=== PATIENT | female | born 1955 | race Caucasian/White ===

== ENCOUNTER 2017-04-03 04:06 | Observation (INO) | payer BC ==
[2017-04-03 04:22] VITALS: BMI 34.9
--- NOTE | 2017-04-03 04:30 | DR.GENAD ---
HPI - PCP Primary Care Physician: trupti - HPI Comment HPI Comment: PATIENT FELL FEW DAYS AGO AND CAUSE ABRSION TO LT WRIST AND LT FACE. THESE AREAS ARE NOW RED AND EXTENDING. THE LEFT WRIST HAVE DRAINING PUSTULAR LESION WITH RED STREAKING EXTENDING TO LT ELBOW. SHE HAD FEVER AT HOME . RT KNEE IS ALSO BRUISE AND RED. ALSO HURTING. - Complaint/Symptoms Chief Complaint Doctors Comments: FEVER AT HOME. REDNESS PAIN LT FACE AND LT WRIST WITH STREKING. Chief Complaint:: FEVER , - Nurses notes reviewed Nurses Notes Review: Yes - Source History Provided: Patient - Mode of Arrival Mode of Arrival: Ambulatory - Timing Onset of Chief Complaint: 03/29/17 Came on: Suddenly - Duration Duration: Constant Duration: Days - Severity Severity: Moderate PMH - PMH Past Medical History: Yes Past Medical History: Diabetes, Dyslipidemia, Migraines, Hypertension Past Medical History Comment: NEUROPATHY Past Surgical History: Yes Surgical History: Appendectomy, Cholecystectomy, Ortho Surgery - Family History History of Family Medical Conditions: Yes Family Medical History: Diabetes Mellitus, Cancer, [place] - Social History Does any household member use tobacco: No Alcohol Use: None Do you use any recreational Drugs:: No Lives With: Family Lives Where: Home - infectious screening In the last 2 months have you had wt loss of >10#?: NO Have you had fever, night sweats or hemotysis?: No Have you traveled outside the country in the last 6 months?: No Isolation: Standard ROS - Review of Systems Constitutional: No Symptoms Reported Eyes: No Symptoms Reported ENTM: No Symptoms Reported Respiratoy: No Symptoms Reported Cardiovascular: No Symptoms Reported Gastrointestinal/Abdominal: No Symptoms Reported Genitourinary: No Symptoms Reported Neurological: No Symptoms Reported Musculoskeletal: Left (LT WRIST REDNESS WITH PUSTULAR DRAINAGE AND RED STREAKING TO LT ELBOW.), Wrist, Knee (RT KNEE ABRASION AND REDNESS.), Other (RT FACE REDNESS AND ABRASION) Integumentary: Change in Color, Lesions Hematologic/Lymphatic: No Symptoms Reported Endocrine: No Symptoms Reported All Other Systems: Reviewed and Negative PE - Vital Signs Vitals: Temperature 98.2 F Pulse Rate [Left Brachial] 95 Pulse Rate 115 Respiratory Rate 16 Blood Pressure [Left Arm] 147/71 Blood Pressure 177/117 O2 Sat by Pulse Oximetry 97 - General Limitations: No Limitations General Appearance: Alert - Head Head Exam: Normal Inspection - Eyes Eye exam: Normal Appearance - ENT ENT Exam: Normal External Ear Exam External Ear Exam: Normal External Inspection TM/Canal Exam: Bilateral Normal Nose Exam: Normal Nose Exam Mouth Exam: Normal Inspection Throat Exam: Normal Inspection - Neck Neck Exam: Normal Inspection - Chest Chest Inspection: Symmetric Chest Wall Rise - Respiratory Respiratory Exam: Normal Lung Sounds Bilat Respiratory Exam: Bilateral Clear to Auscultation - Cardiovascular Cardiovascular Exam: Tachycardia - Abdominal Exam Abdominal Exam: Normal Inspection - Extremities Extremities Exam: Tenderness (LT WRIST PUSTULAR LESION WITH REDNESS AND STREAKING UP TO THE ELBOW.), Other (RT KNEE SWELLING AND TENDERNESS.) - Back Back Exam: Normal Inspection - Neurologic Neurological Exam: Alert - Psychiatric Psychiatric Exam: Normal Affect, Normal Mood - Skin Skin Exam: Erythema (LT FACIAL ABRSION AND REDNESS.) MDM - Additional Information Additional Information Obtained From: Family - Differential Diagnosis Differential Diagnosis: CELLULITIS LT WRIST AND LT FACE, HYPERGLYCEMIA, RT KNEE PAIN/ABRSION Course - Treatment Treatment: SEE ORDERS. IV MEDS AND FLUID IN ED. - Consultation Consultation Comments: DISCUSS PATIENT WITH DR. ALTAMIRANO. HE WILL ADMIT PATIENT. - Education/Counseling Education/Counseling: Patient, Family, Education Educated On: Treatment, Diagnosis ROR - Labs Reviewed Laboratory Results Reviewed?: Yes Result Diagrams: 04/03/17 05:00 04/03/17 05:00 Laboratory: WBC 19.0 X10^3/uL (3.6-10.0) H 04/03/17 05:00 RBC 4.67 X10^6/uL (3.5-5.4) 04/03/17 05:00 Hgb 14.6 g/dL (12.0-16.0) 04/03/17 05:00 Hct 42.4 % (36.0-47.0) 04/03/17 05:00 MCV 90.7 fL (80.0-100.0) 04/03/17 05:00 MCH 31.3 pg (27.0-34.0) 04/03/17 05:00 MCHC 34.5 g/dL (33.0-35.0) 04/03/17 05:00 RDW 12.8 % (11.6-16.5) 04/03/17 05:00 Plt Count 325 X10^3/uL (150.0-450.0) 04/03/17 05:00 MPV 7.7 fL (7.4-11.0) 04/03/17 05:00 Neut % 89.3 % (42.0-75.0) H 04/03/17 05:00 Lymph % 5.2 % (21.0-51.0) L 04/03/17 05:00 [place] % 4.6 % (0.0-13.0) 04/03/17 05:00 Eos % 0.5 % (0.9-2.9) L 04/03/17 05:00 Baso % 0.4 % (0.2-1.0) 04/03/17 05:00 Neut # 17.0 x10^3/uL (2.2-4.8) H 04/03/17 05:00 Lymph # 1.0 X10^3/uL (1.3-2.9) L 04/03/17 05:00 [place] # 0.9 x10^3/uL (0.3-0.8) H 04/03/17 05:00 Eos # 0.1 x10^3/uL (0.0-0.2) 04/03/17 05:00 Baso # 0.1 X10^3/uL (0.0-0.1) 04/03/17 05:00 Absolute Nucleated RBC 0.0 /100WBC 04/03/17 05:00 INR Target Range - 04/03/17 05:00 INR 1.00 (0.8-1.3) 04/03/17 05:00 PTT 30.9 SECONDS (22.9-36.5) 04/03/17 05:00 PTT Comment - 04/03/17 05:00 Sodium 132 mmol/L (136-145) L 04/03/17 05:00 Corrected Sodium 139 mmol/L (136-145) 04/03/17 05:00 Potassium 4.0 mmol/L (3.5-5.1) 04/03/17 05:00 Chloride 97 mmol/L (98-107) L 04/03/17 05:00 Carbon Dioxide 21.6 mmol/L (21-32) 04/03/17 05:00 BUN 18 mg/dL (7-18) 04/03/17 05:00 Creatinine 1.32 mg/dL (0.55-1.02) H 04/03/17 05:00 Est GFR (MDRD) Af Amer 53 (>60) L 04/03/17 05:00 Est GFR (MDRD) Non-Af 43 (>60) L 04/03/17 05:00 Glucose 371 mg/dL (65-99) H 04/03/17 05:00 Lactic Acid 1.5 mmol/L (0.4-2.0) 04/03/17 05:00 Calcium 8.9 mg/dL (8.5-10.1) 04/03/17 05:00 Corrected Calcium TNP 04/03/17 05:00 Total Bilirubin 0.70 mg/dL (0.2-1.0) 04/03/17 05:00 AST 15 Units/L (15-37) 04/03/17 05:00 ALT 23 Units/L (12-78) 04/03/17 05:00 Alkaline Phosphatase 108 Units/L (46-116) 04/03/17 05:00 C-Reactive Protein 32.20 mg/L (0-3.0) H 04/03/17 05:00 Total Protein 7.3 g/dL (6.4-8.2) 04/03/17 05:00 Albumin 3.4 g/dL (3.4-5.0) 04/03/17 05:00 Globulin 3.9 g/dL (2.5-4.5) 04/03/17 05:00 Albumin/Globulin Ratio 0.9 Ratio (1.1-2.1) L 04/03/17 05:00 Acetone, Semi-Quant Small (NEGATIVE) H 04/03/17 05:00 - XRAY XRAY Findings: REPORT DISCUSS WITH PATIENT AND HER SISTER. - Diagnosis Discharge Problem: Cellulitis, face, Cellulitis of wrist, Hyperglycemia Abrasion of right knee Qualifiers: Encounter type: initial encounter Qualified Code(s): S80.211A - Abrasion, right knee, initial encounter - Discharge Plan Disposition: ADMITTED INPATIENT Condition: Stable - Follow ups/Referrals - Instructions
[2017-04-03] MEDS ORDERED: TORADOL 30 MG VIAL IVP ONE (04:43)
[2017-04-03] MEDS ORDERED: ZOSYN VIAL 3.375 GM 3.375 GM in NS 100 ML IV + SPIKE MINIBAG* 100 ML IV ONE (04:43)
[2017-04-03] MEDS ORDERED: TORADOL 30 MG VIAL ONE (05:03)
[2017-04-03] MEDS ORDERED: ZOSYN VIAL 3.375 GM IV ONE (05:04)
[2017-04-03] MEDS ORDERED: NS 100 ML IV 100 ML IV ONE ×2 (05:04→20:23)
[2017-04-03 05:17] LABS: BASOPHILS # (AUTO) 0.1 X10^3/uL (0.0-0.1); BASOPHILS % (AUTO) 0.4 % (0.2-1.0); EOSINOPHILS # (AUTO) 0.1 x10^3/uL (0.0-0.2); EOSINOPHILS % (AUTO) 0.5 % (0.9-2.9); HEMATOCRIT 42.4 % (36.0-47.0); HEMOGLOBIN 14.6 g/dL (12.0-16.0); LYMPHOCYTES % (AUTO) 5.2 % (21.0-51.0); MEAN CORPUSCULAR HEMOGLOBIN 31.3 pg (27.0-34.0); MEAN CORPUSCULAR HGB CONC 34.5 g/dL (33.0-35.0); MEAN CORPUSCULAR VOLUME 90.7 fL (80.0-100.0); MEAN PLATELET VOLUME 7.7 fL (7.4-11.0); MONOCYTES # (AUTO) 0.9 x10^3/uL (0.3-0.8); MONOCYTES % (AUTO) 4.6 % (0.0-13.0); NEUTROPHILS % (AUTO) 89.3 % (42.0-75.0); PLATELET COUNT 325 X10^3/uL (150.0-450.0); RED BLOOD COUNT 4.67 X10^6/uL (3.5-5.4); RED CELL DISTRIBUTION WIDTH 12.8 % (11.6-16.5)
[2017-04-03 05:26] LABS: ALANINE AMINOTRANSFERASE 23 Units/L (12-78); ALBUMIN 3.4 g/dL (3.4-5.0); ALKALINE PHOSPHATASE 108 Units/L (46-116); ASPARTATE AMINO TRANSFERASE 15 Units/L (15-37); BLOOD UREA NITROGEN 18 mg/dL (7-18); CALCIUM 8.9 mg/dL (8.5-10.1); CARBON DIOXIDE 21.6 mmol/L (21-32); CHLORIDE 97 mmol/L (98-107); COR NA(FOR HYPERGLY) 139 mmol/L (136-145); CREATININE 1.32 mg/dL (0.55-1.02); SODIUM 132 mmol/L (136-145); TOTAL PROTEIN 7.3 g/dL (6.4-8.2); eGFR BLACK RACES 53 (>60); eGFR NON BLACK RACES 43 (>60)
[2017-04-03 05:45] LABS: LACTIC ACID 1.5 mmol/L (0.4-2.0)
[2017-04-03] MEDS ORDERED: NS 1000 ML 1,000 ML IV ONE (06:00)
[2017-04-03] MEDS ORDERED: NS 1000 ML 1,000 ML ONE ×2 (06:01→07:29)
--- NOTE | 2017-04-03 06:49 | RAD ---
Examination: Left wrist, three views History: Fell with pain Findings: No definite fracture, carpal displacement, bone destruction or pathologic calcification. Impression: No acute abnormality identified. Reported By:
[2017-04-03] MEDS ORDERED: PHENERGAN TAB 25 MG PO PRN (06:58)
[2017-04-03] MEDS ORDERED: MOTRIN TAB 600 MG PO PRN (06:58)
[2017-04-03] MEDS ORDERED: PHARMACY CONSULT - VANCOMYCIN XX SCH (07:00)
[2017-04-03] MEDS ORDERED: DEMEROL INJ IVP ONE (07:04)
[2017-04-03] MEDS ORDERED: ZOFRAN INJ 4 MG VIAL IVP PRN (07:04)
[2017-04-03] MEDS ORDERED: ULTRAM PO PRN (07:06)
[2017-04-03] MEDS ORDERED: CHOLECALCIFEROL 50000 UNIT PO SCH (07:15)
[2017-04-03] MEDS ORDERED: DULAGLUTIDE 0.75 MG SC SCH (07:15)
[2017-04-03 07:32] LABS: ABG ALLEN TEST POS; ABG BASE EXCESS -1.6 mmol/L (-2.0-2.0); ABG HCO3 22.9 mmol/L (22-26)
[2017-04-03] MEDS: NS 1000 ML 1,000 ML IV SCH ×2 (07:39→14:55)
[2017-04-03] MEDS ORDERED: HumuLIN R ONE (07:41)
[2017-04-03] MEDS: HumuLIN R SC PRN ×2 (07:44→11:35)
[2017-04-03] MEDS ORDERED: PATIENT'S HOME MEDICATION (Ascorbic Acid [Vitamin C] 1,000 MG) PO SCH (09:00)
[2017-04-03] MEDS ORDERED: SYNTHROID 75 mcg TAB PO SCH (09:00)
[2017-04-03] MEDS ORDERED: OLMESARTAN MEDOXOMIL 20 MG PO SCH (09:00)
[2017-04-03] MEDS: VANCOMYCIN HCL 1 GM VIAL 1 GM in NS 250 ML IV 250 ML IV SCH ×2 (09:34→20:55)
[2017-04-03] MEDS: ZOSYN VIAL 3.375 GM IV SCH ×3 (09:35→21:00)
[2017-04-03] MEDS: BENICAR TAB 40 MG PO SCH (09:35)
[2017-04-03] MEDS: HYDROCHLOROTHIAZIDE 25 MG TAB PO SCH (09:35)
[2017-04-03] MEDS: GLUCOVANCE 5/500MG PO SCH ×2 (09:36→20:46)
[2017-04-03] MEDS: NEURONTIN CAP 300 MG PO SCH ×2 (09:36→20:45)
[2017-04-03] MEDS: VITAMIN C PO SCH ×2 (09:36→20:50)
[2017-04-03] MEDS: LANTUS SC SCH (09:41)
[2017-04-03] MEDS: SYNTHROID 50 mcg TAB PO SCH (10:01)
[2017-04-03] MEDS: MILNACIPRAN HCL 25 MG PO SCH ×2 (11:25→22:41)
[2017-04-03] MEDS: ESTRADIOL PO SCH (11:25)
[2017-04-03] MEDS: NORETHINDRONE ACET PO SCH (11:25)
[2017-04-03] MEDS ORDERED: NS 100 ML IV + SPIKE MINIBAG* 100 ML IV ONE (14:50)
[2017-04-03] MEDS: TORADOL 15 MG VIAL IVP PRN ×2 (14:55→20:59)
[2017-04-03] MEDS ORDERED: NS 500 ML IV 500 ML IV ONE (20:21)
[2017-04-04] MEDS: NS 1000 ML 1,000 ML IV SCH ×5 (01:50→21:46)
[2017-04-04] MEDS ORDERED: NS 100 ML IV 100 ML IV ONE ×2 (05:16→13:25)
[2017-04-04] MEDS: ZOSYN VIAL 3.375 GM IV SCH ×3 (05:45→22:30)
[2017-04-04] MEDS: SYNTHROID 50 mcg TAB PO SCH (06:01)
[2017-04-04 06:10] LABS: ALBUMIN 2.7 g/dL (3.4-5.0); CALCIUM 7.8 mg/dL (8.5-10.1); CARBON DIOXIDE 22.2 mmol/L (21-32); COR CA(FOR HYPOALB) 8.8 mg/dL (8.5-10.1); CREATININE 1.5 mg/dL (0.55-1.02)
[2017-04-04 06:13] LABS: BASOPHILS % (AUTO) 0.3 % (0.2-1.0); EOSINOPHILS # (AUTO) 0.3 x10^3/uL (0.0-0.2); EOSINOPHILS % (AUTO) 2.5 % (0.9-2.9); HEMATOCRIT 36.6 % (36.0-47.0); HEMOGLOBIN 12.9 g/dL (12.0-16.0); LYMPHOCYTES # (AUTO) 1.1 X10^3/uL (1.3-2.9); LYMPHOCYTES % (AUTO) 9.3 % (21.0-51.0); MEAN CORPUSCULAR HEMOGLOBIN 31.8 pg (27.0-34.0); MEAN CORPUSCULAR HGB CONC 35.1 g/dL (33.0-35.0); MEAN CORPUSCULAR VOLUME 90.4 fL (80.0-100.0); MEAN PLATELET VOLUME 8.2 fL (7.4-11.0); MONOCYTES # (AUTO) 0.7 x10^3/uL (0.3-0.8); MONOCYTES % (AUTO) 5.5 % (0.0-13.0); NEUTROPHILS # (AUTO) 10.2 x10^3/uL (2.2-4.8); NEUTROPHILS % (AUTO) 82.4 % (42.0-75.0); PLATELET COUNT 204 X10^3/uL (150.0-450.0); RED BLOOD COUNT 4.04 X10^6/uL (3.5-5.4); RED CELL DISTRIBUTION WIDTH 12.8 % (11.6-16.5); WHITE BLOOD COUNT 12.3 X10^3/uL (3.6-10.0)
[2017-04-04] MEDS: MILNACIPRAN HCL 25 MG PO SCH ×3 (08:39→21:59)
[2017-04-04] MEDS: NEBIVOLOL HCL 40 MG PO SCH (08:40)
[2017-04-04] MEDS: ESTRADIOL PO SCH (08:41)
[2017-04-04] MEDS: NORETHINDRONE ACET PO SCH (08:41)
[2017-04-04] MEDS: BENICAR TAB 40 MG PO SCH (08:42)
[2017-04-04] MEDS: NEURONTIN CAP 300 MG PO SCH ×2 (08:42→20:47)
[2017-04-04] MEDS: GLUCOVANCE 5/500MG PO SCH ×2 (08:42→20:47)
[2017-04-04] MEDS: HYDROCHLOROTHIAZIDE 25 MG TAB PO SCH (08:43)
[2017-04-04] MEDS: VITAMIN C PO SCH ×2 (08:43→20:47)
[2017-04-04] MEDS: VANCOMYCIN HCL 1 GM VIAL 1 GM in NS 250 ML IV 250 ML IV SCH ×2 (08:44→20:46)
[2017-04-04] MEDS: LANTUS SC SCH (08:44)
[2017-04-04] MEDS ORDERED: AMBIEN PO PRN (09:21)
[2017-04-04] MEDS: COLACE CAP 100 MG PO SCH ×2 (10:02→20:48)
[2017-04-04] MEDS: TOPAMAX PO SCH ×2 (10:02→20:47)
[2017-04-04] MEDS: MILK OF MAGNESIA PO SCH ×2 (10:03→10:06)
[2017-04-04] MEDS: SNACK - Diabetic Appropriate PO SCH ×2 (10:06→20:45)
[2017-04-04] MEDS: TORADOL 15 MG VIAL IVP PRN ×2 (11:51→20:42)
[2017-04-04] MEDS: HumuLIN R SC PRN ×2 (12:01→21:58)
--- NOTE | 2017-04-04 13:54 | DR.H&P ---
H&P - History & Physical for Day of: H&P Date: 04/03/17 - Chief Complaint Chief Complaint: fall, facial and wrist abrasions and redness, fever - Allergies Allergies/Adverse Reactions: Allergies Allergy/AdvReac Type Severity Reaction Status Date / Time codeine Allergy Verified 04/03/17 04:11 hydrocodone Allergy Verified 04/03/17 04:11 oxycodone Allergy Verified 04/03/17 04:11 - History of Present Illness History of Present Illness: is a 61 year old patient of Dr.Jill Justino mendez who presented to the emergency room with reports of redness, abrasions, and pain to the face and left wrist following a recent fall. Patient reports she fell off of the porch and landed on brick. She is noted with redness and abrasions to the left side of face and nose as well as an abrasion to the left wrist. Patient reports that left wrist has been noted with purulent drainage. Patient noted with red streaking extending from wrist to left elbow. She reports fever at home. Medical History includes the following: Hypertension, DM type II, Dyslipidemia, Migraines, NeuropathyOn arrival to the emergency room, vital signs were: 98.2, 115, 17, 96% RA, 177/117. Labs and wrist xray were obtained. Abnormal lab values include the following: WBC 19.0, Neut% 89.3, Lymph % 5.2, Eos% 0.5, Neut# 17.0, Lymph# 1.0, [place]# 0.9, Sodium 132, Chloride 97, Creatinine 1.32, GFR af 53, GFR non 43, Glucose 371, CRP 32.20, A/G Ratio 0.9, Serum Acetone Small. ABG: pO2 71.0. Wound Culture (Left wrist) Pending. Blood Cultures x2 Pending. Left Wrist X-Ray: No acute abnormality identified. We admitted patient to the hospital as observation for further evaluation and treatment of cellulitis to the left side face and left upper extremity. Patient was started on IV antibiotics of Zosyn and Vancomycin. We will obtain a facial bones CT and follow up with labs in the morning. - Past Medical History Past Medical History: Diabetes, Dyslipidemia, Migraines, Hypertension - Past Surgical History Surgical History: Appendectomy, Cholecystectomy, Ortho Surgery - Family History Family Medical History: Diabetes Mellitus, Cancer, [place] - Social History Does patient currently use any type of tobacco product: No Have you used tobacco products in the last 12 months: No Type of Tobacco Use: None Does any household member use tobacco: No Alcohol Use: None Drug Use: None - Medications Home Medications: Ascorbic Acid [Vitamin C] 1,000 mg PO BID 04/03/17 [History Confirmed 04/03/17] Cholecalciferol (Vitamin D3) [Vitamin D3] 50,000 unit PO MONTHLY 04/03/17 [ History Confirmed 04/03/17] Dulaglutide [Trulicity] 0.75 mg SC WEEKLY 04/03/17 [History Confirmed 04/03/17] Gabapentin 600 mg PO BID 04/03/17 [History Confirmed 04/03/17] Hydrochlorothiazide [Hydrochlorothiazide 25 mg Tab] 25 mg PO QAM 04/03/17 [ History Confirmed 04/03/17] Olmesartan Medoxomil [Benicar] 20 mg PO DAILY 04/03/17 [History Confirmed ] Zolpidem Tartrate [Ambien] 10 mg PO HS PRN 04/03/17 [History Confirmed 04/03/17] - Review of Systems Constitutional: Fever Eyes: No Symptoms Reported. denies: See HPI, Pain, Vision Change, Conjunctivae Inflammation, Eyelid Inflammation, Redness, Other ENT: No Symptoms Reported. denies: See HPI, Ear Pain, Ear Discharge, Nose Pain , Nose Discharge, Nose Congestion, Mouth Pain, Mouth Swelling, Throat Pain, Throat Swelling, Other Respiratory: No Symptoms Reported. denies: See HPI, Cough, Dry, Shortness of Breath, Hemoptysis, SOB with Excertion, Pleuritic Pain, Sputum, Wheezing, Other Cardiovascular: No Symptoms Reported. denies: Chest Pain, See HPI, Palpitations , Orthopnea, Paroxysmal Noc. Dyspnea, Edema, Light Headedness, Other Gastrointestinal: No Symptoms Reported. denies: See HPI, Nausea, Vomiting, Abdominal Pain, Diarrhea, Constipation, Melena, Hematochezia, Other Genitourinary: No Symptoms Reported. denies: See HPI, Dysuria, Frequency, Incontinence, Hematuria, Retention, Other Musculoskeletal: Hand Pain (left wrist pain and redness, purulent drainage, red streaking from wrist to elbow), Other (left knee abrasion and redness, left side facial redness and abrasions ) Skin: Wound (left wrist, left knee, and left side face redness and abrasions ) - Physical Exam Vital Signs: Temperature 98.1 F Pulse Rate [Left Brachial] 82 Pulse Rate 115 Respiratory Rate 20 Blood Pressure [Right Arm] 133/63 Blood Pressure [Left Arm] 127/60 Blood Pressure 177/117 O2 Sat by Pulse Oximetry 97 Oriented: Normal Eyes: Normal Ear: Normal Nose: Normal Throat: Normal Respiratory: Clear Throughout Cardiovascular: Edema (bilateral lower extremities ) : Normal Auscultation: Bowel Sounds: Normal Palpation: Normal Tenderness: Normal Skin: Wound (left wrist abrasion, redness, and purulent drainage, left side facial redness and abrasions, left knee redness and abrasions ) Musculoskeletal: Left, Wrist (left wrist pain, abrasions, redness ), Knee (left knee pain ) Psychiatric: Normal Mood Description: Calm Affect: Normal - Assessment/Plan (1) Cellulitis of wrist Status: Acute Plan: vancomycin iv, zosyn iv, wound care, continue to monitor (2) Cellulitis, face Status: Acute Plan: obtain facial bones ct, vancomycin iv, zosyn iv, wound care, continue to monitor (3) Abrasion of right knee Qualifiers: Encounter type: initial encounter Qualified Code(s): S80.211A - Abrasion, right knee, initial encounter Status: Acute Plan: vancomycin iv, zosyn iv, wound care, continue to monitor (4) Hyperglycemia Status: Acute Plan: check otbs, humulin r sliding scale, continue home medications, continue to monitor
--- NOTE | 2017-04-04 17:41 | CT ---
CT FACE WITHOUT IV CONTRAST CLINICAL INDICATION: Fall with abrasions to left face TECHNIQUE: Multiple-row detector helical CT examination of the facial bones and mandible without IV c ontrast. Axial, sagittal, and coronal reconstructed images. Dose reduction techniques including Auto mated Exposure Control (AEC) and adjustment of mA and kV were utlized. COMPARISON: None. FINDINGS: The facial bones including the mandible are within normal limits. Specifically, there is no evidence of fracture or dislocation, and no evidence of aggressive osseous lesions. The globes are normal in size, contour, and position. The course and caliber of the optic nerve sheat h complex is within normal limits. The extraocular muscles, intraconal fat, and extraconal fat are w ithin normal limits. The lacrimal glands appear normal. The orbital flores and optic canals are idalia l. The visualized intracranial structures appear normal. No lesion of the visualized skull base or jose luis rium is present. The visualized paranasal sinuses and tympanomastoid cavities are unopacified. IMPRESSION: 1. Grossly unremarkable CT of the face without IV contrast. Reported By:
[2017-04-04] MEDS ORDERED: NS 250 ML IV 250 ML IV ONE (19:48)
[2017-04-05] MEDS: NS 1000 ML 1,000 ML IV SCH ×2 (01:09→07:12)
[2017-04-05] MEDS: TORADOL 15 MG VIAL IVP PRN (02:56)
[2017-04-05] MEDS ORDERED: NS 100 ML IV + SPIKE MINIBAG* 100 ML IV ONE (05:38)
[2017-04-05 05:47] LABS: BASOPHILS % (AUTO) 0.4 % (0.2-1.0); EOSINOPHILS # (AUTO) 0.5 x10^3/uL (0.0-0.2); EOSINOPHILS % (AUTO) 4.8 % (0.9-2.9); HEMATOCRIT 33.7 % (36.0-47.0); HEMOGLOBIN 11.9 g/dL (12.0-16.0); LYMPHOCYTES # (AUTO) 1.9 X10^3/uL (1.3-2.9); LYMPHOCYTES % (AUTO) 19.5 % (21.0-51.0); MEAN CORPUSCULAR HGB CONC 35.2 g/dL (33.0-35.0); MEAN CORPUSCULAR VOLUME 90.9 fL (80.0-100.0); MEAN PLATELET VOLUME 8.2 fL (7.4-11.0); MONOCYTES # (AUTO) 0.6 x10^3/uL (0.3-0.8); NEUTROPHILS # (AUTO) 6.7 x10^3/uL (2.2-4.8); NEUTROPHILS % (AUTO) 69.3 % (42.0-75.0); PLATELET COUNT 217 X10^3/uL (150.0-450.0); RED BLOOD COUNT 3.71 X10^6/uL (3.5-5.4); RED CELL DISTRIBUTION WIDTH 13.1 % (11.6-16.5); WHITE BLOOD COUNT 9.6 X10^3/uL (3.6-10.0)
[2017-04-05] MEDS: ZOSYN VIAL 3.375 GM IV SCH (06:05)
[2017-04-05] MEDS: SYNTHROID 50 mcg TAB PO SCH (06:06)
[2017-04-05 06:27] LABS: ALANINE AMINOTRANSFERASE 32 Units/L (12-78); ALBUMIN 2.6 g/dL (3.4-5.0); ALKALINE PHOSPHATASE 94 Units/L (46-116); ASPARTATE AMINO TRANSFERASE 23 Units/L (15-37); BLOOD UREA NITROGEN 14 mg/dL (7-18); CALCIUM 7.6 mg/dL (8.5-10.1); CARBON DIOXIDE 24.1 mmol/L (21-32); CHLORIDE 109 mmol/L (98-107); COR CA(FOR HYPOALB) 8.7 mg/dL (8.5-10.1); CREATININE 1.22 mg/dL (0.55-1.02); SODIUM 142 mmol/L (136-145); TOTAL PROTEIN 5.9 g/dL (6.4-8.2); eGFR BLACK RACES 58 (>60); eGFR NON BLACK RACES 48 (>60)
[2017-04-05] MEDS ORDERED: FIORICET TAB PO ONE ×2 (09:11→10:00)
[2017-04-05 09:14] LABS: CREATININE 1.22 mg/dL (0.55-1.02); VANCOMYCIN,TROUGH 18.2 ug/mL (15-20)
[2017-04-05] MEDS: LANTUS SC SCH (09:21)
[2017-04-05] MEDS: BENICAR TAB 40 MG PO SCH (09:22)
[2017-04-05] MEDS: VITAMIN C PO SCH (09:23)
[2017-04-05] MEDS: GLUCOVANCE 5/500MG PO SCH (09:23)
[2017-04-05] MEDS: HYDROCHLOROTHIAZIDE 25 MG TAB PO SCH (09:24)
[2017-04-05] MEDS: NEURONTIN CAP 300 MG PO SCH (09:24)
[2017-04-05] MEDS: NEBIVOLOL HCL 40 MG PO SCH (09:29)
[2017-04-05] MEDS: MILNACIPRAN HCL 25 MG PO SCH (09:29)
[2017-04-05] MEDS: ESTRADIOL PO SCH (09:29)
[2017-04-05] MEDS: NORETHINDRONE ACET PO SCH (09:29)
[2017-04-05] MEDS: TOPAMAX PO SCH (09:29)
[2017-04-05] MEDS: MILK OF MAGNESIA PO SCH (10:02)
[2017-04-05] MEDS: VANCOMYCIN HCL 1 GM VIAL 1 GM in NS 250 ML IV 250 ML IV SCH (10:03)
[2017-04-05 10:46] VITALS: BP 152/81
== END 2017-04-05 11:45 | disposition home or self-care (01) | DRG 603 ==
LOC: ER 04:06 → MED/SURG 06:55
PROVIDERS: ADMIT Internal Medicine; ATTEND Internal Medicine
DX: L03.211 Cellulitis of face (principal); L03.114 Cellulitis of left upper limb; S80.211A Abrasion, right knee, initial encounter; E11.65 Type 2 diabetes mellitus with hyperglycemia; Z91.81 History of falling; E78.2 Mixed hyperlipidemia; I10 Essential (primary) hypertension; B95.61 Methicillin susceptible Staphylococcus aureus infection as the cause of diseases classified elsewhere; R79.82 Elevated C-reactive protein (CRP); W17.89XA Other fall from one level to another, initial encounter; Y92.098 Other place in other non-institutional residence as the place of occurrence of the external cause
CPT/HCPCS: 36415; 36600; 70486; 73100; 80053; 80202; 82009; 82565; 82803; 83605; 85025; 85610; 85730; 86140; 87040; 87070; 87075; 87077; 87186; 87205; 96365; 96367; 96372; 96374; 96375; 99283; 99284; A4222; G0378; J1815; J1885; J2543; J3370

== ENCOUNTER 2022-11-10 18:49 | Inpatient (IN) ==
--- NOTE | 2022-11-10 20:29 | DR.URIAD ---
HPI Time Seen Time Seen by Provider: 11/10/22 20:29 PCP Primary Care Physician: ES SHAH Complaint Chief Complaint Doctors Comments: 66 y/o female, ill x 3 days. + developed fever, weakness. No cough, congestion, sore throat. Having some diarrhea past 4 days, occ nausea. No vomiting, muscle pain, rash. No headache. Saw PCP yesterday, had negative swabs. Put on Tamiflu anyway. Temp spiked to 105 today. Chief Complaint:: PATIENT BROUGHT IN ER VIA WHEELCHAIR. PT COMPLAINS OF ELEVATED TEMP, BODY ACHES, WEAKNESS, DECREASED APPETITE SINCE SATURDAY. PT STATES SHE SEEN HER PCP YESTERDAY WITH NEGATIVE COVID FLU AND STREP RESULTS. PCP SENT HER HOME WITH TAMIFLU DUE TO FLU LIKE SYMPTOMS. PT STATES HER TEMP WAS 105 TODAY. TEMP NOTED TO BE 97.8 IN TRIAGE. BP 71/45. PT HAS NO COMPLAINTS OF DIZZINESS, LIGHTHEADED, N/V AT THIS TIME. Self Treatment fo Chief Complaint: TAMIFLU COVID-19 Coronavirus risk:travel/contact w/high risk person: Yes Has patient experienced Coronavirus symptoms: Yes Coronavirus symptoms experienced: Fever Source History Provided: Patient and Family Member Mode of Arrival Mode of Arrival: Ambulatory Timing Onset of Chief Complaint: 11/07/22 PMH PMH Past Medical History: Yes Past Medical History: Seizures Past Medical History Comment: EPILEPSY Past Surgical History: Yes Surgical History: Appendectomy, Cholecystectomy, Weight Loss Surgery and Other Past Surgical History Comment: EYE SURGERY Family History History of Family Medical Conditions: Yes Family Medical History: Diabetes Mellitus, Cancer and [place] Social History Does patient currently use any type of tobacco product: No Have you used tobacco products in the last 12 months: No Type of Tobacco Use: None Does any household member use tobacco: No Alcohol Use: None Do you use any recreational Drugs:: No Lives With: Family Lives Where: Home Travel Risk Coronavirus risk:travel/contact w/high risk person: Yes Has patient experienced Coronavirus symptoms: Yes Coronavirus symptoms experienced: Fever Infectious screening Have you traveled outside the country in the last 6 months?: No Isolation: Standard ROS Review of Systems Constitutional: Fever and Weakness Eyes: No Symptoms Reported ENTM: No Symptoms Reported Respiratoy: No Symptoms Reported Cardiovascular: No Symptoms Reported Gastrointestinal/Abdominal: Diarrhea and Nausea Genitourinary: No Symptoms Reported Neurological: Weakness Musculoskeletal: Neck Pain Integumentary: No Symptoms Reported All Other Systems: Reviewed and Negative PE Vital Signs Vitals: Vital Signs Temperature 97.8 F Pulse Rate 85 Pulse Rate 85 Pulse Rate 91 Pulse Rate 94 Pulse Rate 93 Pulse Rate 90 Pulse Rate 97 Pulse Rate 92 Pulse Rate 90 Pulse Rate 94 Pulse Rate 94 Pulse Rate 93 Pulse Rate 92 Pulse Rate 79 Respiratory Rate 19 Blood Pressure 93/51 Blood Pressure 125/59 Blood Pressure 116/57 Blood Pressure 71/45 O2 Sat by Pulse Oximetry 96 O2 Sat by Pulse Oximetry 95 O2 Sat by Pulse Oximetry 98 O2 Sat by Pulse Oximetry 98 O2 Sat by Pulse Oximetry 98 O2 Sat by Pulse Oximetry 97 O2 Sat by Pulse Oximetry 100 O2 Sat by Pulse Oximetry 98 O2 Sat by Pulse Oximetry 98 O2 Sat by Pulse Oximetry 100 O2 Sat by Pulse Oximetry 100 O2 Sat by Pulse Oximetry 97 O2 Sat by Pulse Oximetry 99 O2 Sat by Pulse Oximetry 97 General General Appearance: Alert and In No Apparent Distress Eyes Eye exam: PERRL, EOMI and Other (no photophobia) ENT ENT Exam: Normal Oropharynx, Mucous Membranes Moist and TM's Normal Bilaterally Neck Neck Exam: Normal Inspection and Full ROM; negative Meningismus Respiratory Respiratory Exam: Normal Lung Sounds Bilat; negative Accessory Muscle Use or Respiratory Distress Cardiovascular Cardiovascular Exam: Regular Rate, Normal Rhythm and Normal Heart Sounds Abdominal Exam Abdominal Exam: Normal Bowel Sounds and Soft; negative Tenderness or Guarding Extremeties Extremities Exam: Normal Inspection Neurologic Neurological Exam: Alert, Oriented X3 and CN II-XII Intact; negative Motor Sensory Deficit Skin Skin Exam: Warm and Dry COURSE Treatment Treatment: 66 /y with persistent fever past 3 days, some diarrhea. BP low. W/u initiated. Pt given IV fluids. 2308 - labs show elevated BUN/Cr, c/w BOBBI. Pt states Cr was 1.6 about 3 weeks ago. Total WBC normal, but has a left shift. Liver enzymes markedly elevated - AST 1,522, ALT 447. LA a bit up at 2.1. Overall looks good. + acute febrile illness, with elevated liver enzymes concerning for acute hepatitis. Hepatitis panel ordered. Will admit for BOBBI, and continue hydration, will cover with IV Rocephin in view of left shift. Recommend admission. Discussed with Dr Philip, accepts the admission. ROR Labs Reviewed Laboratory Results Reviewed?: Yes 11/10/22 20:50 11/10/22 20:50 Laboratory: WBC 3.7 X10^3/uL (3.6-10.0) 11/10/22 20:50 RBC 3.70 X10^6/uL (3.5-5.4) 11/10/22 20:50 Hgb 12.2 g/dL (12.0-16.0) 11/10/22 20:50 Hct 35.8 % (36.0-47.0) L 11/10/22 20:50 MCV 96.7 fL (80.0-100.0) 11/10/22 20:50 MCH 33.0 pg (27.0-34.0) 11/10/22 20:50 MCHC 34.1 g/dL (33.0-35.0) 11/10/22 20:50 RDW 13.7 % (11.6-16.5) 11/10/22 20:50 Plt Count 121 X10^3/uL (150.0-450.0) L 11/10/22 20:50 Plt Count Comment Decreased (ADEQUATE) A 11/10/22 20:50 MPV 8.3 fL (7.4-11.0) 11/10/22 20:50 Neut % (Auto) 94.5 % (42.0-75.0) H 11/10/22 20:50 Lymph % (Auto) 4.5 % (21.0-51.0) L 11/10/22 20:50 [place] % (Auto) 0.5 % (0.0-13.0) 11/10/22 20:50 Eos % (Auto) 0.4 % (0.9-2.9) L 11/10/22 20:50 Baso % (Auto) 0.1 % (0.2-1.0) L 11/10/22 20:50 Neut # (Auto) 3.5 x10^3/uL (2.2-4.8) 11/10/22 20:50 Lymph # (Auto) 0.2 X10^3/uL (1.3-2.9) L 11/10/22 20:50 [place] # (Auto) 0 x10^3/uL (0.3-0.8) L 11/10/22 20:50 Eos # (Auto) 0.0 x10^3/uL (0.0-0.2) 11/10/22 20:50 Baso # (Auto) 0.0 X10^3/uL (0.0-0.1) 11/10/22 20:50 Absolute Nucleated RBC 0.1 /100WBC 11/10/22 20:50 Total Counted 100 11/10/22 20:50 Neutrophils % (Manual) 79 % (39-76) H 11/10/22 20:50 Band Neutrophils % 11 % (0-10) H 11/10/22 20:50 Lymphocytes % (Manual) 6 % (13-43) L 11/10/22 20:50 Monocytes % (Manual) 2 % (4-9) L 11/10/22 20:50 Eosinophils % (Manual) 2 % (0-6) 11/10/22 20:50 Plt Morphology Comment Normal (NORMAL) 11/10/22 20:50 RBC Morphology Normal (NORMAL) 11/10/22 20:50 Sodium 136 mmol/L (136-145) 11/10/22 20:50 Corrected Sodium 137 mmol/L (136-145) 11/10/22 20:50 Potassium 4.1 mmol/L (3.5-5.1) 11/10/22 20:50 Chloride 104 mmol/L (98-107) 11/10/22 20:50 Carbon Dioxide 22.8 mmol/L (21-32) 11/10/22 20:50 BUN 39 mg/dL (7-18) H 11/10/22 20:50 Creatinine 2.59 mg/dL (0.55-1.02) H 11/10/22 20:50 Est GFR (MDRD) Af Amer 24 (>60) L 11/10/22 20:50 Est GFR (MDRD) Non-Af 20 (>60) L 11/10/22 20:50 Glucose 128 mg/dL (65-99) H 11/10/22 20:50 Lactic Acid 2.1 mmol/L (0.4-2.0) H 11/10/22 20:50 Calcium 8.0 mg/dL (8.5-10.1) L 11/10/22 20:50 Corrected Calcium 9.0 mg/dL (8.5-10.1) 11/10/22 20:50 Total Bilirubin 2.10 mg/dL (0.2-1.0) H 11/10/22 20:50 AST 1522 Units/L (15-37) H 11/10/22 20:50 ALT 447 Units/L (12-78) H 11/10/22 20:50 Alkaline Phosphatase 190 Units/L (46-116) H 11/10/22 20:50 Total Protein 5.5 g/dL (6.4-8.2) L 11/10/22 20:50 Albumin 2.8 g/dL (3.4-5.0) L 11/10/22 20:50 Globulin 2.7 g/dL (2.5-4.5) 11/10/22 20:50 Albumin/Globulin Ratio 1.0 Ratio (1.1-2.1) L 11/10/22 20:50 Lipase 42 Units/L (73-393) L 11/10/22 20:50 SARS-CoV-2 (PCR) Negative (NEGATIVE) 11/10/22 22:28 Influenza Type A (PCR) Negative (NEGATIVE) 11/10/22 22:28 Influenza Type B (PCR) Negative (NEGATIVE) 11/10/22 22:28 RSV (PCR) Negative (NEGATIVE) 11/10/22 22:28 Abnormal liver, renal numbers. XRAY XRAY Interpreted by: Self X-ray Results: CXR - without acute abnormalities. Opioid Opioid Risk Tool Age (Dwight box if 16-45): No History of Preadolescent Sexual Abuse: No Total: 0 Total Score Risk Category: Low Risk Copyright: Alban GAGNON predicting aberrant behaviors Discharge Plan Diagnosis Discharge Problem: Acute nontraumatic kidney injury, Acute hepatitis Discharge Plan Patient Disposition: 09 ADMITTED INPATIENT Condition: Stable Orders to Discharge Patient Discharge Orders: Transfer (Routine); Ordered 11/10/22 Ordered By: Nixon Reich
[2022-11-10] MEDS ORDERED: NS 1,000 ML IV 1,000 ML IV ONE ×2 (20:35→23:06)
[2022-11-10] MEDS ORDERED: NS 1,000 ML IV 1,000 ML ONE ×2 (21:02→23:05)
[2022-11-10 21:13] LABS: HEMOGLOBIN 12.2 g/dL (12.0-16.0); LYMPHOCYTES # (AUTO) 0.2 X10^3/uL (1.3-2.9); MONOCYTES # (AUTO) 0 x10^3/uL (0.3-0.8)
[2022-11-10 21:19] LABS: BASOPHILS % (AUTO) 0.1 % (0.2-1.0); EOSINOPHILS % (AUTO) 0.4 % (0.9-2.9); HEMATOCRIT 35.8 % (36.0-47.0); LYMPHOCYTES % (AUTO) 4.5 % (21.0-51.0); MEAN CORPUSCULAR HGB CONC 34.1 g/dL (33.0-35.0); MEAN CORPUSCULAR VOLUME 96.7 fL (80.0-100.0); MEAN PLATELET VOLUME 8.3 fL (7.4-11.0); MONOCYTES % (AUTO) 0.5 % (0.0-13.0); NEUTROPHILS # (AUTO) 3.5 x10^3/uL (2.2-4.8); NEUTROPHILS % (AUTO) 94.5 % (42.0-75.0); PLATELET COUNT 121 X10^3/uL (150.0-450.0); RED CELL DISTRIBUTION WIDTH 13.7 % (11.6-16.5); WHITE BLOOD COUNT 3.7 X10^3/uL (3.6-10.0)
[2022-11-10 21:26] LABS: ALBUMIN 2.8 g/dL (3.4-5.0); CARBON DIOXIDE 22.8 mmol/L (21-32); CREATININE 2.59 mg/dL (0.55-1.02); POTASSIUM 4.1 mmol/L (3.5-5.1); TOTAL PROTEIN 5.5 g/dL (6.4-8.2)
[2022-11-10 21:31] LABS: LACTIC ACID 2.1 mmol/L (0.4-2.0)
--- NOTE | 2022-11-10 21:37 | RAD ---
EXAM: CHEST X-RAYHISTORY: Fever.TECHNIQUE: AP CXR dated November 10, 2022 at 9:05 PM.COMPARISON: None available.FINDINGS:The heart size and mediastinum are within normal limits. The lung linton and costophrenic angles are clear. There is no acute parenchymal infiltrate, pleural effusion, or pneumothorax seen. The visualized bony structures are within normal limits. A thoracolumbar spinal epidural stimulator is noted in situ.IMPRESSION:1. No evidence for acute cardiopulmonary disease seen.Electronically signed by: Avelino Landaverde (Nov 10, 2022 21:31:54)
[2022-11-10 21:41] LABS: BAND NEUTROPHILS % 11 % (0-10); PLATELET MORPHOLOGY COMMENT NORMAL (NORMAL)
[2022-11-10] MEDS ORDERED: ROCEPHIN VIAL 1 GRAM 1 G in NS 100 ML IV 100 ML IV ONE (23:06)
[2022-11-10] MEDS ORDERED: ROCEPHIN VIAL 1 GRAM ONE (23:10)
[2022-11-10] MEDS ORDERED: NS 100 ML IV 100 ML ONE (23:10)
[2022-11-11 00:53] LABS: BILIRUBIN,URINE 1+ (NEGATIVE); BLOOD/HEMOGLOBIN,URINE 1+ (NEGATIVE); GLUCOSE, URINE NEGATIVE (NEGATIVE); KETONES,URINE NEGATIVE (NEGATIVE); LEUKOCYTE ESTERASE ,URINE NEGATIVE (NEGATIVE); NITRITES,URINE NEGATIVE (NEGATIVE); PROTEIN,URINE 3+ (NEGATIVE); UROBILINOGEN,URINE 2+ (NORMAL)
[2022-11-11] MEDS ORDERED: CONSULT PHARMACY - POTASSIUM & MAGNESIUM XX SCH (00:57)
[2022-11-11] MEDS ORDERED: ROCEPHIN VIAL 1 GRAM 1 G in NS 100 ML IV 100 ML IV SCH (00:57)
[2022-11-11 01:09] LABS: APPEARANCE,URINE HAZY (CLEAR); COLOR,URINE DARK YELLOW (YELLOW)
[2022-11-11 01:10] LABS: BACTERIA,URINE TRACE /HPF (NEGATIVE); RENAL EPITHELIAL CELLS,URINE FEW /HPF (NEGATIVE); SQUAMOUS EPITHELIAL CELL,UR MODERATE /HPF (NEGATIVE)
[2022-11-11 01:14] LABS: GRANULAR CASTS,URINE FEW /LPF (NEGATIVE)
[2022-11-11 01:43] VITALS: BMI 25.7
[2022-11-11] MEDS: D5 NS 1,000 ML IV 1,000 ML IV SCH ×2 (01:58→11:11)
[2022-11-11 05:13] LABS: BASOPHILS % (AUTO) 0.1 % (0.2-1.0); HEMATOCRIT 29.6 % (36.0-47.0); HEMOGLOBIN 10.4 g/dL (12.0-16.0); LYMPHOCYTES # (AUTO) 0.2 X10^3/uL (1.3-2.9); LYMPHOCYTES % (AUTO) 2.7 % (21.0-51.0); MEAN CORPUSCULAR HEMOGLOBIN 33.8 pg (27.0-34.0); MEAN CORPUSCULAR HGB CONC 35.1 g/dL (33.0-35.0); MEAN CORPUSCULAR VOLUME 96.1 fL (80.0-100.0); MEAN PLATELET VOLUME 8.9 fL (7.4-11.0); MONOCYTES # (AUTO) 0.6 x10^3/uL (0.3-0.8); MONOCYTES % (AUTO) 7.2 % (0.0-13.0); NEUTROPHILS # (AUTO) 8.1 x10^3/uL (2.2-4.8); PLATELET COUNT 94 X10^3/uL (150.0-450.0); RED BLOOD COUNT 3.08 X10^6/uL (3.5-5.4); RED CELL DISTRIBUTION WIDTH 13.8 % (11.6-16.5)
[2022-11-11 05:33] LABS: ALBUMIN 2.2 g/dL (3.4-5.0); CARBON DIOXIDE 20.7 mmol/L (21-32); COR CA(FOR HYPOALB) 8.4 mg/dL (8.5-10.1); CREATININE 2.43 mg/dL (0.55-1.02); POTASSIUM 3.9 mmol/L (3.5-5.1); TOTAL PROTEIN 4.7 g/dL (6.4-8.2)
[2022-11-11] MEDS: BROMOCRIPTINE PO SCH ×2 (08:31→21:10)
[2022-11-11] MEDS: ESTRADIOL PO SCH (08:32)
[2022-11-11] MEDS: NORETHINDRONE ACET PO SCH (08:32)
[2022-11-11] MEDS: LAMICTAL TAB 100 MG PO SCH (08:32)
[2022-11-11] MEDS: SYNTHROID 75 mcg TAB PO SCH (08:33)
[2022-11-11] MEDS: TOPAMAX TAB 100 MG PO SCH ×2 (08:33→20:53)
[2022-11-11] MEDS ORDERED: SYNTHROID 75 mcg TAB PO SCH (09:00)
[2022-11-11] MEDS ORDERED: COREG TAB 6.25 MG PO SCH (09:00)
[2022-11-11] MEDS ORDERED: NS 1,000 ML IV 1,000 ML IV ONE (11:21)
[2022-11-11] MEDS ORDERED: NS 1,000 ML IV 1,000 ML ONE (11:23)
[2022-11-11 12:26] LABS: INR 1.16 (0.8-1.3)
--- NOTE | 2022-11-11 12:27 | DR.H&P ---
H&P - History & Physical for Day of: H&P Date: 11/11/22 - Chief Complaint Chief Complaint: weakness, diarrhea, fever - History of Present Illness History of Present Illness: PT IS 66 WF, ER ADMISSION AFTER BEING BROUGHT IN ER VIA WHEELCHAIR. PT COMPLAINS OF ELEVATED TEMP, BODY ACHES, WEAKNESS, DECREASED APPETITE SINCE SATURDAY. PT STATES SHE SEEN HER PCP YESTERDAY WITH NEGATIVE COVID FLU AND STREP RESULTS. PCP SENT HER HOME WITH TAMIFLU DUE TO FLU LIKE SYMPTOMS. PT STATES HER TEMP WAS 105 TODAY. TEMP NOTED TO BE 97.8 IN TRIAGE. BP 71/45. PT HAS NO COMPLAINTS OF DIZZINESS, LIGHTHEADED, N/V AT THIS TIME. PT REPORTS PMH OF DIET CONTROLLED TYPE 2 DM, STAGE II RENAL DISEASE, HYPERTENSION RESOLVED WITH WEIGHT LOSS AND CHRONIC BACK PAIN. PT ADMITTED FOR ACUTE ILLNESS. - Past Medical History Past Medical History: Arthritis, Diabetes, Hypertension, Renal Disease, Seizures - Past Surgical History Surgical History: Appendectomy, Cholecystectomy, Ortho Surgery, Weight Loss Surgery Additional Surgical History: GASTRIC BYPASS - Family History Family Medical History: Diabetes Mellitus, Cancer, Hypertension - Social History Does patient currently use any type of tobacco product: No Have you used tobacco products in the last 12 months: No Type of Tobacco Use: None Does any household member use tobacco: No Alcohol Use: None Drug Use: None - Review of Systems Constitutional: Fever, Weakness, Malaise Eyes: No Symptoms Reported ENT: No Symptoms Reported Respiratory: No Symptoms Reported Cardiovascular: denies: Chest Pain Gastrointestinal: Nausea, Diarrhea Genitourinary: Retention Musculoskeletal: Back Pain, Leg Pain Skin: No Symptoms Reported Neurological: No Symptoms Reported - Physical Exam Vital Signs: Vital Signs Temperature 98.0 F Pulse Rate 67 Pulse Rate 68 Pulse Rate 74 Pulse Rate 64 Pulse Rate 61 Pulse Rate 62 Respiratory Rate 10 Respiratory Rate 9 Respiratory Rate 11 Respiratory Rate 10 Respiratory Rate 13 Respiratory Rate 12 Blood Pressure 107/53 Blood Pressure 95/54 Blood Pressure 118/67 Blood Pressure 112/79 Blood Pressure 103/59 Blood Pressure 106/57 O2 Sat by Pulse Oximetry 100 O2 Sat by Pulse Oximetry 100 O2 Sat by Pulse Oximetry 100 O2 Sat by Pulse Oximetry 100 O2 Sat by Pulse Oximetry 100 O2 Sat by Pulse Oximetry 98 Oriented: Normal Eyes: Normal Ear: Normal Nose: Normal Throat: Normal Respiratory: RLL Diminished, LLL Diminished Cardiovascular: Normal. negative: Edema : Normal Auscultation: Bowel Sounds: Normal Palpation: Normal Tenderness: LLQ, Moderate Skin: Decreased Turgur Musculoskeletal: Normal Psychiatric: Normal Speech Pattern: Clear, Appropriate - Assessment/Plan (1) Hypotension Status: Acute Plan: ADMIT, IV HYDRATION WITH SALINE BOLUS, STRICT I&OS. CXR ON ADMISSION, CONTINUOUS CARDIAC MONITORING AND SUPPLEMENTAL O2 PRN, BP CONTROL. VERIFY HOME MEDICATION, HOLD COREG AT THIS TIME. PT/INR, AMMONIA LEVEL, VIRAL PANEL OBTAINED ON ADMISSION. ACUTE HEPATITIS PANEL OBTAINED ON ADMISSION (2) Acute renal failure (ARF) Status: Acute (3) Thrombocythemia Status: Acute (4) Acute liver disease Status: Acute (5) Hypertension Status: Chronic (6) Diabetes mellitus Status: Chronic - Allergies Allergies/Adverse Reactions: Allergies Allergy/AdvReac Type Severity Reaction Status Date / Time codeine Allergy Verified 06/07/18 12:34 oxycodone Allergy Verified 06/07/18 12:34 [id number] Reductase Allergy Verified 06/07/18 12:34 Inhibitor [Iiswfpn-Ddd-Wbz Reductase Inhibitor] - Medications Home Medications: Home Medications Medication Instructions Recorded Confirmed Estradiol & Norethindrone Acet 1 mg PO DAILY 04/15/14 11/10/22 [Activella] bromocriptine 0.8 mg tablet 1.6 mg PO BID 11/10/22 11/10/22 (Cycloset) carvedilol 6.25 mg tablet 6.25 mg PO BID 11/10/22 11/10/22 folic acid 1 mg tablet 11/10/22 hydrocodone 7.5 mg-acetaminophen 15 - 30 ml PO Q6HR 11/10/22 11/10/22 325 mg/15 mL oral solution lamotrigine 100 mg tablet 100 mg PO DAILY 11/10/22 11/10/22 (Lamictal) levothyroxine 75 mcg tablet 75 mcg PO QDAY 11/10/22 11/10/22 levothyroxine 75 mcg tablet 75 mcg PO QDAY 11/10/22 11/10/22 temazepam 15 mg capsule (Restoril) 15 mg PO HS 11/10/22 11/11/22 topiramate 100 mg tablet 100 mg PO BID 11/10/22 11/10/22
[2022-11-11 12:33] LABS: ALBUMIN 2.3 g/dL (3.4-5.0); CARBON DIOXIDE 20.3 mmol/L (21-32); COR CA(FOR HYPOALB) 8.4 mg/dL (8.5-10.1); CREATININE 2.47 mg/dL (0.55-1.02); POTASSIUM 4.2 mmol/L (3.5-5.1); TOTAL PROTEIN 5.1 g/dL (6.4-8.2)
[2022-11-11 12:36] LABS: LACTIC ACID 2.5 mmol/L (0.4-2.0)
[2022-11-11 12:52] LABS: IRON 11 ug/dL (50-175)
[2022-11-11] MEDS: NS 1,000 ML IV 1,000 ML IV SCH (15:47)
[2022-11-11] MEDS ORDERED: NS 250 ML IV 250 ML IV ONE (17:16)
[2022-11-11] MEDS ORDERED: RESTORIL CAP 15 MG PO SCH (21:00)
[2022-11-11] MEDS: LORTAB ELIX 7.5/325 MG (15 ML) PO PRN (21:07)
[2022-11-11] MEDS: ROCEPHIN VIAL 1 GRAM 1 G in NS 100 ML IV 100 ML IV SCH (23:50)
--- NOTE | 2022-11-12 02:13 | CT ---
PROCEDURE: CT Abdomen and Pelvis without Contrast .HISTORY: Elevated liver function tests and left lower quadrant pain with fever.TECHNIQUE: Axial images were performed through the abdomen and pelvis without the administration of IV contrast with multiplanar reformations . Oral contrast was not administered . Dose reduction techniques including Automated Exposure Control (AEC) and adjustment of mA and kV were utilized .COMPARISON: None .TECHNICAL QUALITY: Satisfactory .FINDINGS:Linear scar versus discoid atelectasis at the lung bases.Liver, spleen, adrenals, pancreas show no abnormality.Kidneys show no stones or obstruction. Vascular calcifications both renal aracely.Previous cholecystectomy.No ascites or pneumoperitoneum.Mild atherosclerosis aorta.No lymphadenopathy.No bowel obstruction or inflammation. No abnormality in the left lower quadrant. Previous gastric bypass surgery. Previous appendectomy.Pelvis shows no masses or free fluid with unremarkable reproductive organs and urinary bladder.Intramedullary armani left femur. No acute bony abnormality.IMPRESSION:1. No explanation for left lower quadrant pain.2. Previous gastric bypass surgery.3. No other significant abnormality identified.Electronically signed by: Chris Lindsey (Nov 12, 2022 02:12:17)
[2022-11-12] MEDS: NS 1,000 ML IV 1,000 ML IV SCH ×3 (02:41→21:33)
[2022-11-12] MEDS: LORTAB ELIX 7.5/325 MG (15 ML) PO PRN ×4 (02:45→21:34)
[2022-11-12 05:15] LABS: BASOPHILS % (AUTO) 0.1 % (0.2-1.0); EOSINOPHILS # (AUTO) 0.2 x10^3/uL (0.0-0.2); EOSINOPHILS % (AUTO) 1.3 % (0.9-2.9); HEMATOCRIT 28.8 % (36.0-47.0); LYMPHOCYTES # (AUTO) 1.7 X10^3/uL (1.3-2.9); LYMPHOCYTES % (AUTO) 13.5 % (21.0-51.0); MEAN CORPUSCULAR HEMOGLOBIN 33.5 pg (27.0-34.0); MEAN CORPUSCULAR HGB CONC 34.8 g/dL (33.0-35.0); MEAN CORPUSCULAR VOLUME 96.3 fL (80.0-100.0); MEAN PLATELET VOLUME 8.8 fL (7.4-11.0); MONOCYTES # (AUTO) 0.8 x10^3/uL (0.3-0.8); NEUTROPHILS # (AUTO) 10.2 x10^3/uL (2.2-4.8); NEUTROPHILS % (AUTO) 79.1 % (42.0-75.0); PLATELET COUNT 118 X10^3/uL (150.0-450.0); RED CELL DISTRIBUTION WIDTH 13.7 % (11.6-16.5); WHITE BLOOD COUNT 12.8 X10^3/uL (3.6-10.0)
[2022-11-12 05:20] LABS: ALANINE AMINOTRANSFERASE 246 Units/L (12-78); ALBUMIN 2.1 g/dL (3.4-5.0); ALKALINE PHOSPHATASE 125 Units/L (46-116); ASPARTATE AMINO TRANSFERASE 223 Units/L (15-37); BLOOD UREA NITROGEN 38 mg/dL (7-18); CALCIUM 6.9 mg/dL (8.5-10.1); CARBON DIOXIDE 18.7 mmol/L (21-32); CHLORIDE 106 mmol/L (98-107); COR CA(FOR HYPOALB) 8.4 mg/dL (8.5-10.1); CREATININE 2.14 mg/dL (0.55-1.02); GLUCOSE 89 mg/dL (65-99); POTASSIUM 3.8 mmol/L (3.5-5.1); SODIUM 135 mmol/L (136-145); TOTAL PROTEIN 4.7 g/dL (6.4-8.2); eGFR NON BLACK RACES 25 (>60)
[2022-11-12 05:26] LABS: LACTIC ACID 0.5 mmol/L (0.4-2.0)
[2022-11-12] MEDS ORDERED: CONSULT PHARMACY - POTASSIUM & MAGNESIUM XX SCH (06:00)
--- NOTE | 2022-11-12 08:18 | RAD ---
HISTORYHISTORY OF SEPSISSTUDYCHEST, 1 [id number]/29/2023.TECHNIQUEPA or AP view of the chestFINDINGSSpine neurostimulator device noted. Cardiac and mediastinal contours are within normal limits. Low lung volumes. No consolidation or segmental lung collapse. No definite pleural effusion or pneumothorax. Soft tissue attenuation limits evaluation.IMPRESSIONNo acute pulmonary process.Electronically signed by: Brady Faye (Nov 12, 2022 08:16:06)
[2022-11-12] MEDS ORDERED: NS 100 ML IV 100 ML with VENOFER 400 MG IV NR ×2 (09:00)
[2022-11-12] MEDS: SYNTHROID 75 mcg TAB PO SCH (09:54)
[2022-11-12] MEDS: TOPAMAX TAB 100 MG PO SCH ×2 (09:54→21:34)
[2022-11-12] MEDS: LAMICTAL TAB 100 MG PO SCH (09:54)
[2022-11-12] MEDS: BROMOCRIPTINE PO SCH ×2 (10:08→21:56)
[2022-11-12] MEDS: NORETHINDRONE ACET PO SCH (10:09)
[2022-11-12] MEDS: ESTRADIOL PO SCH (10:09)
[2022-11-12] MEDS: RESTORIL CAP 15 MG PO PRN (21:34)
[2022-11-12] MEDS: ROCEPHIN VIAL 1 GRAM 1 G in NS 100 ML IV 100 ML IV SCH (22:42)
[2022-11-13] MEDS: LORTAB ELIX 7.5/325 MG (15 ML) PO PRN ×4 (04:27→22:29)
[2022-11-13 05:15] LABS: BASOPHILS % (AUTO) 0.4 % (0.2-1.0); EOSINOPHILS # (AUTO) 0.1 x10^3/uL (0.0-0.2); EOSINOPHILS % (AUTO) 1.3 % (0.9-2.9); HEMATOCRIT 29.5 % (36.0-47.0); HEMOGLOBIN 10.3 g/dL (12.0-16.0); LYMPHOCYTES # (AUTO) 1.7 X10^3/uL (1.3-2.9); LYMPHOCYTES % (AUTO) 14.2 % (21.0-51.0); MEAN CORPUSCULAR HEMOGLOBIN 33.7 pg (27.0-34.0); MEAN CORPUSCULAR VOLUME 96.1 fL (80.0-100.0); MEAN PLATELET VOLUME 8.3 fL (7.4-11.0); MONOCYTES # (AUTO) 0.6 x10^3/uL (0.3-0.8); MONOCYTES % (AUTO) 5.1 % (0.0-13.0); NEUTROPHILS # (AUTO) 9.2 x10^3/uL (2.2-4.8); PLATELET COUNT 154 X10^3/uL (150.0-450.0); RED BLOOD COUNT 3.08 X10^6/uL (3.5-5.4); RED CELL DISTRIBUTION WIDTH 13.7 % (11.6-16.5); WHITE BLOOD COUNT 11.7 X10^3/uL (3.6-10.0)
[2022-11-13 05:28] LABS: ALANINE AMINOTRANSFERASE 174 Units/L (12-78); ALBUMIN 2.2 g/dL (3.4-5.0); ALKALINE PHOSPHATASE 124 Units/L (46-116); ASPARTATE AMINO TRANSFERASE 78 Units/L (15-37); BLOOD UREA NITROGEN 29 mg/dL (7-18); CALCIUM 7.5 mg/dL (8.5-10.1); CARBON DIOXIDE 20.6 mmol/L (21-32); COR CA(FOR HYPOALB) 8.9 mg/dL (8.5-10.1); CREATININE 1.92 mg/dL (0.55-1.02); GLUCOSE 82 mg/dL (65-99); TOTAL PROTEIN 4.9 g/dL (6.4-8.2); eGFR NON BLACK RACES 28 (>60)
[2022-11-13 05:36] LABS: CHLORIDE 112 mmol/L (98-107); POTASSIUM 4.5 mmol/L (3.5-5.1); SODIUM 142 mmol/L (136-145)
[2022-11-13] MEDS ORDERED: MILK OF MAGNESIA PO PRN (08:51)
[2022-11-13] MEDS ORDERED: FIORICET TAB PO PRN (08:51)
[2022-11-13] MEDS ORDERED: LORTAB ELIX 7.5/325 MG (15 ML) ONE (09:23)
[2022-11-13] MEDS: LAMICTAL TAB 100 MG PO SCH (09:42)
[2022-11-13] MEDS: ESTRADIOL PO SCH (09:43)
[2022-11-13] MEDS: SYNTHROID 75 mcg TAB PO SCH (09:43)
[2022-11-13] MEDS: NORETHINDRONE ACET PO SCH (09:43)
[2022-11-13] MEDS: TOPAMAX TAB 100 MG PO SCH ×2 (09:43→21:20)
[2022-11-13] MEDS: COLACE CAP 100 MG PO SCH ×2 (09:43→21:20)
[2022-11-13] MEDS: BROMOCRIPTINE PO SCH ×2 (09:44→21:21)
[2022-11-13] MEDS ORDERED: CONSULT PHARMACY - ANTIBIOTIC XX SCH (12:00)
[2022-11-13] MEDS: NS 1,000 ML IV 1,000 ML IV SCH ×2 (12:03→22:30)
[2022-11-13] MEDS ORDERED: LEVAQUIN PREMIX IV 750 MG 750 MG/150 ML BAG IV SCH (13:00)
[2022-11-13] MEDS: RESTORIL CAP 15 MG PO PRN (22:29)
[2022-11-14] MEDS: LORTAB ELIX 7.5/325 MG (15 ML) PO PRN ×2 (04:30→10:36)
[2022-11-14 05:44] LABS: BASOPHILS # (AUTO) 0.1 X10^3/uL (0.0-0.1); BASOPHILS % (AUTO) 0.9 % (0.2-1.0); EOSINOPHILS # (AUTO) 0.2 x10^3/uL (0.0-0.2); EOSINOPHILS % (AUTO) 2.5 % (0.9-2.9); HEMATOCRIT 29.6 % (36.0-47.0); HEMOGLOBIN 10.5 g/dL (12.0-16.0); LYMPHOCYTES # (AUTO) 2.1 X10^3/uL (1.3-2.9); LYMPHOCYTES % (AUTO) 21.6 % (21.0-51.0); MEAN CORPUSCULAR HEMOGLOBIN 33.8 pg (27.0-34.0); MEAN CORPUSCULAR HGB CONC 35.4 g/dL (33.0-35.0); MEAN CORPUSCULAR VOLUME 95.6 fL (80.0-100.0); MEAN PLATELET VOLUME 8.1 fL (7.4-11.0); MONOCYTES # (AUTO) 0.5 x10^3/uL (0.3-0.8); MONOCYTES % (AUTO) 5.3 % (0.0-13.0); NEUTROPHILS # (AUTO) 6.9 x10^3/uL (2.2-4.8); NEUTROPHILS % (AUTO) 69.7 % (42.0-75.0); PLATELET COUNT 179 X10^3/uL (150.0-450.0); WHITE BLOOD COUNT 9.8 X10^3/uL (3.6-10.0)
[2022-11-14 05:47] LABS: BLOOD UREA NITROGEN 22 mg/dL (7-18); CARBON DIOXIDE 21.1 mmol/L (21-32); CHLORIDE 112 mmol/L (98-107); CREATININE 1.62 mg/dL (0.55-1.02); GLUCOSE 105 mg/dL (65-99); SODIUM 143 mmol/L (136-145); eGFR NON BLACK RACES 34 (>60)
[2022-11-14 06:12] LABS: ALANINE AMINOTRANSFERASE 116 Units/L (12-78); ALBUMIN 2.3 g/dL (3.4-5.0); ALKALINE PHOSPHATASE 121 Units/L (46-116); ASPARTATE AMINO TRANSFERASE 31 Units/L (15-37); COR CA(FOR HYPOALB) 9.4 mg/dL (8.5-10.1); TOTAL PROTEIN 4.9 g/dL (6.4-8.2)
[2022-11-14 08:04] LABS: HEPATITIS B SURFACE ANTIGEN Negative (Negative)
[2022-11-14] MEDS: NS 1,000 ML IV 1,000 ML IV SCH (08:08)
[2022-11-14] MEDS: COLACE CAP 100 MG PO SCH (08:08)
[2022-11-14] MEDS: LAMICTAL TAB 100 MG PO SCH (08:09)
[2022-11-14] MEDS: SYNTHROID 75 mcg TAB PO SCH (08:09)
[2022-11-14] MEDS: TOPAMAX TAB 100 MG PO SCH (08:09)
[2022-11-14] MEDS: BROMOCRIPTINE PO SCH (08:10)
[2022-11-14] MEDS: NORETHINDRONE ACET PO SCH (08:11)
[2022-11-14] MEDS: ESTRADIOL PO SCH (08:11)
[2022-11-14 08:28] VITALS: RESP 22; TEMP 98.5; O2SAT 98
[2022-11-14] MEDS ORDERED: CONSULT PHARMACY - ANTIBIOTIC XX SCH (11:00)
[2022-11-14 11:01] VITALS: BP 155/73; PULSE 66
== END 2022-11-14 12:23 | disposition home or self-care (01) | DRG 872 ==
LOC: ER 19:10 → ICU 19:10
PROVIDERS: ADMIT Internal Medicine; ATTEND Internal Medicine
DX: R94.5 Abnormal results of liver function studies; K76.9 Liver disease, unspecified; E11.65 Type 2 diabetes mellitus with hyperglycemia; D50.8 Other iron deficiency anemias; Z20.822 Contact with and (suspected) exposure to COVID-19; R53.1 Weakness; M54.59 Other low back pain; I10 Essential (primary) hypertension; D69.6 Thrombocytopenia, unspecified; A41.51 Sepsis due to Escherichia coli [E. coli]; N17.8 Other acute kidney failure; R10.84 Generalized abdominal pain; N39.0 Urinary tract infection, site not specified